=== PATIENT | male | born 1930 | race Caucasian/White ===

== ENCOUNTER 2016-08-04 16:11 | Emergency (ER) | payer MEDICARE, BC ==
--- NOTE | 2016-08-04 16:45 | ER Document Report ---
ED Respiratory Problem - General Mode of Arrival: Medic Information source: Patient, Relative - and family - HPI Patient complains to provider of: Short of breath Associated symptoms: Other - See above <KATHERINE JO - Last Filed: 08/04/16 16:59> <KIMBERLY POLLACK - Last Filed: 08/04/16 23:11> <YISSEL PATTON - Last Filed: 08/05/16 03:38> <RASHAAD NINA - Last Filed: 08/05/16 07:28> - General Chief Complaint: Shortness Of Breath Stated Complaint: shortness of breath Notes: Patient is an 85 year old male who presents to the emergency department complaining of shortness of breath for 1 month. 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 Patient saw his PCP for this and was admitted to hospital in [place], family requested he be sent to [facility] where his oncologist is. When in [facility] patient had about 1.6L of fluid removed out of his left side about 2 weeks ago, 11 days ago a little less than 1L of fluid was removed again. Patient received 3 days of consecutive chemotherapy last weekend. Per patient is on no regular medications. PCP: Dr. Jean Claude Self (KATHERINE JO) This 85-year-old male patient with a history of mediastinal carcinoid tumor and recurrent left pleural effusion comes emergency room for shortness of breath for the past month recently gotten worse. Seen by his physician in [place], and transferred to [facility]. 2 weeks ago he had 1.6 L of fluid removed from the left chest, approximately 3 days later he had another 0.7 L removed. He received chemotherapy this past Sunday and Sunday one week ago. He was seen in the office on Sunday and probably received a Neulasta injection for low white blood cell count. When first seen by me he was on BiPAP and reports his breathing was much better than it had been before the BiPAP. According to the EMS run sheet and the call report taken by the nurse, the patient had a respiratory rate of 40 prior to EMS starting C Pap. They did not record a pulse ox prior to see Pap. On see Pap his wrist where her rate decreased to 26 and his oxygen saturation was 92% In the emergency room on BiPAP his oxygen saturation is gone up to 100% and his respiratory rate has decreased and he reports his breathing feels much better.. (KIMBERLY POLLACK) - Related Data Allergies/Adverse Reactions: No Known Allergies Allergy (Unverified 08/04/16 21:45) Past Medical History - General Information source: Patient - Social History Smoking Status: Former Smoker - 40 years Family History: Reviewed & Not Pertinent Malignancy Medical History: Reports Other - Hx Carcinoid tumor <KATHERINE JO - Last Filed: 08/04/16 16:59> Review of Systems - Review of Systems Constitutional: No symptoms reported EENT: No symptoms reported Cardiovascular: No symptoms reported Respiratory: See HPI, Short of breath Gastrointestinal: No symptoms reported Genitourinary: No symptoms reported Male Genitourinary: No symptoms reported Musculoskeletal: No symptoms reported Skin: No symptoms reported Hematologic/Lymphatic: No symptoms reported Neurological/Psychological: No symptoms reported -: Yes All other systems reviewed and negative <KATHERINE JO - Last Filed: 08/04/16 16:59> Physical Exam - Vital signs Interpretation: Tachypneic - HEENT Head: Normocephalic, Atraumatic - Respiratory Respiratory status: Respiratory distress, Tachypnea Chest status: Nontender Breath sounds: Normal Chest palpation: Normal - Cardiovascular Rhythm: Regular Heart sounds: Normal auscultation Murmur: No - Back Back: Normal, Nontender - Extremities General upper extremity: Normal inspection General lower extremity: Edema - Pitting edema bilaterally - Neurological Neuro grossly intact: Yes Cognition: Normal Orientation: AAOx4 [place] Coma Scale Eye Opening: Spontaneous Harpreet Coma Scale Verbal: Oriented [place] Coma Scale Motor: Obeys Commands [place] Coma Scale Total: 15 Speech: Normal - Psychological Associated symptoms: Normal affect, Normal mood - Skin Skin Temperature: Warm Skin Moisture: Dry Skin Color: Normal <KATHERINE JO - Last Filed: 08/04/16 16:59> Course <KATHERINE JO - Last Filed: 08/04/16 16:59> - Laboratory Result Diagrams: 08/04/16 17:25 08/04/16 17:25 - Diagnostic Test Radiology reviewed: Image reviewed, Reports reviewed - Chest x-ray shows left pleural effusion and/or airspace disease at the base. There is cardiomegaly. There is mild interstitial prominence. - Transfer of Care Care transferred to following provider: Dr. Patton <KIMBERLY POLLACK - Last Filed: 08/04/16 23:11> - Laboratory Result Diagrams: 08/04/16 17:25 08/04/16 17:25 <YISSEL PATTON - Last Filed: 08/05/16 03:38> - Laboratory Result Diagrams: 08/04/16 17:25 08/04/16 17:25 <RASHAAD NINA - Last Filed: 08/05/16 07:28> - Re-evaluation Re-evalutation: 08/04/16 21:25 The patient was discussed with his oncologist Dr. Camacho, he feels the toilet count is good for this patient, and the white blood cell count is elected due to the Neulasta he received. He prefers not to start antibiotics at this time with no hypotension or fever. He does agree that it might be in the patient's best interest to be transferred to [facility]. The patient was then discussed with Dr. Roth from the hospitalist service who agrees to accept the patient in transfer. At this time they're waiting on beds to open up and feel it may be 3-4 hours before a bed becomes available. The family was kept up-to-date on this information. 08/04/16 23:11 The patient removed his BiPAP mask to suck on a swab. His pulse ox dropped to 88% on room air. We will get a CTA chest to look for other causes for his hypoxia. (KIMBERLY POLLACK) 08/05/16 03:38 On reevaluation the patient is comfortable with the BiPAP. He denies any pain. I did explain the results of the CT angios to the family. Appears the most likely has difficulty breathing is related to recurrence of his pleural effusion which is most likely related to his cancer. We are still waiting transfer. Patient will continue to be closely monitored until transfer. ( YISSEL PATTON) 08/05/16 07:27 Patient reevaluated stable on BiPAP family members in the room, awaiting transfer at this time (RASHAAD NINA) - Vital Signs Vital signs: Temp Pulse Resp BP Pulse Ox 97.7 F 17 116/62 98 08/05/16 04:00 08/05/16 07:01 08/05/16 07:01 08/05/16 07:01 (KATHERINE JO) (KIMBERLY POLLACK) (YISSEL PATTON) (RASHAAD NINA) - Laboratory Laboratory results interpreted by me: 08/04/16 08/04/16 08/04/16 17:25 17:25 17:25 WBC 37.2 H* RBC 3.74 L Hgb 11.3 L Hct 35.3 L RDW 14.4 H Plt Count 38 L Band Neutrophils % 19 H Lymphocytes % (Manual) 0 L Metamyelocytes % 1 H Myelocytes % 3 H Promyelocytes % 5 H Immature Leukocytes % 5 H Abs Neuts (Manual) 33.9 H Abs Lymphs (Manual) 0.4 L Sodium 135.9 L Potassium 5.4 H Chloride 91 L Carbon Dioxide 31 H BUN 40 H Glucose 151 H Lactic Acid 4.7 H Creatine Kinase 22 L 08/04/16 21:43 WBC RBC Hgb Hct RDW Plt Count Band Neutrophils % Lymphocytes % (Manual) Metamyelocytes % Myelocytes % Promyelocytes % Immature Leukocytes % Abs Neuts (Manual) Abs Lymphs (Manual) Sodium Potassium Chloride Carbon Dioxide BUN Glucose Lactic Acid 2.9 H Creatine Kinase (KIMBERLY POLLACK) (YISSEL PATTON) (RASHAAD NINA) - EKG Interpretation by Me Additional EKG results interpreted by me: 08/05/16 01:14 EKG is reviewed and interpreted by me. EKG shows A. fib with a rate of [address] segment elevation or depression. No ischemic T wave inversions. QRS duration and QTc intervals are within normal range. (YISSEL PATTON) - Transfer of Care Notes: 08/04/16 23:06 Patient remains on BiPAP, pending transfer to move him to [facility]. He is receiving 1 L of saline at 250 mL per hour. There is no fluid ordered to follow that at this time due to the possibility of some pulmonary vascular congestion. 08/04/16 23:13 A CTA chest was ordered due to the patient becoming hypoxic when his BiPAP was removed. (KIMBERLY POLLACK) Critical Care Note - Critical Care Note Total time excluding time spent on procedures (mins): 30 <KIMBERLY POLLACK - Last Filed: 08/04/16 23:11> Discharge <KATHERINE JO - Last Filed: 08/04/16 16:59> <KIMBERLY POLLACK - Last Filed: 08/04/16 23:11> <YISSEL PATTON - Last Filed: 08/05/16 03:38> <RASHAAD NINA - Last Filed: 08/05/16 07:28> - Discharge Clinical Impression: Recurrent left pleural effusion, Dehydration, Mediastinal carcinoid tumor, Hypoxemia Leukocytosis Qualifiers: Leukocytosis type: bandemia Qualified Code(s): D72.825 - Bandemia Condition: Stable Disposition: [facility] Referrals: JEAN CLAUDE SELF MD [Primary Care Provider] - Follow up as needed Scribe Attestation: 08/04/16 21:27 I personally performed the services described in the documentation, reviewed and edited the documentation which was dictated to the scribe in my presence, and it accurately records my words and actions. (KIMBERLY POLLACK) Scribe Documentation - Scribe Written by Lucie:: lucie Harden, 08/04/16, [id number] acting as scribe for :: Elayne <KATHERINE JO - Last Filed: 08/04/16 16:59>
[2016-08-04 17:51] LABS: HEMATOCRIT 35.3 % (37.9-51.0); HEMOGLOBIN 11.3 g/dL (13.5-17.0); HGB HCT DIFFERENCE -1.4; MEAN CORPUSCULAR HEMOGLOBIN 30.2 pg (27.0-33.4); MEAN CORPUSCULAR VOLUME 94 fl (80-97); RED BLOOD COUNT 3.74 10^6/uL (4.35-5.55); RED CELL DISTRIBUTION WIDTH 14.4 % (11.5-14.0)
[2016-08-04 18:00] LABS: ALANINE AMINOTRANSFERASE 29 U/L (21-72); ALBUMIN 4.3 g/dL (3.5-5.0); ALKALINE PHOSPHATASE 101 U/L (38-126); ANION GAP 14 (5-19); ASPARTATE AMINO TRANSFERASE 42 U/L (17-59); BLOOD UREA NITROGEN 40 mg/dL (7-20); CALCIUM 8.6 mg/dL (8.4-10.2); CARBON DIOXIDE 31 mmol/L (22-30); CHLORIDE 91 mmol/L (98-107); CREATINE KINASE 22 U/L (55-170); CREATININE RESULT 0.98 mg/dL (0.52-1.25); GLUCOSE 151 mg/dL (75-110); POTASSIUM 5.4 mmol/L (3.6-5.0); SODIUM 135.9 mmol/L (137-145); TOTAL PROTEIN 6.4 g/dL (6.3-8.2)
[2016-08-04 18:09] LABS: CREATINE KINASE MB 2.34 ng/mL (<4.55)
[2016-08-04 18:13] LABS: TROPONIN I < 0.012 ng/mL
[2016-08-04 18:32] LABS: BASOPHILS % (MANUAL) 0 % (0-2); EOSINOPHILS % (MANUAL) 0 % (0-6); LYMPHOCYTES % (MANUAL) 0 % (13-45); NUCLEATED RED BLOOD CELLS 2 /100 WBC (0); TOTAL CELLS COUNTED 100
[2016-08-04 18:47] LABS: ANISOCYTOSIS SLIGHT; POLYCHROMASIA 1+; SMUDGE CELLS PRESENT
[2016-08-04 18:48] LABS: WHITE BLOOD COUNT 37.2 10^3/uL (4.0-10.5)
[2016-08-04 18:49] LABS: BAND NEUTROPHILS % (MANUAL) 19 % (3-5)
[2016-08-04] MEDS ORDERED: NORMAL SALINE 1000 ML 1,000 ML IV ONE (20:09)
[2016-08-04] MEDS ORDERED: NORMAL SALINE 1000 ML 250 ML IV ONE (20:14)
[2016-08-05 08:44] LABS: ARTERIAL BLOOD O2 SATURATION 94.7 % (94-98)
[2016-08-05 09:01] VITALS: BP 99/55
--- NOTE | 2016-08-05 09:26 | EKG REPORT ---
SEVERITY:- ABNORMAL ECG - ATRIAL FIBRILLATION : Confirmed by: Geo Moeller 05-Aug-2016 09:25:22
[2016-08-07 15:13] LABS: PATH REVIEW PATHOLOGIST REVIEWED
== END 2016-08-05 09:12 | disposition short-term general hospital (02) ==
LOC: ER 16:11
DX: R06.02 Shortness of breath (principal); D72.825 Bandemia; C7A.098 Malignant carcinoid tumors of other sites; J90 Pleural effusion, not elsewhere classified; E86.0 Dehydration; Z87.891 Personal history of nicotine dependence; Z79.899 Other long term (current) drug therapy; R09.02 Hypoxemia
CPT/HCPCS: 93005; 99291; 96360; 36415; 82553; 82803; 82550; 85025; 80053; 84484; 83605; 71010; 71275; 93010; 94660 ×2; J7030